=== PATIENT | female | born 2000 | race African-American/Black ===

== ENCOUNTER 2023-02-01 01:32 | Day surgery (SDC) | payer OTHER ==
[2023-02-01] MEDS ORDERED: hydrALAZINE 20 MG/ML VIAL SLOW IVP PRN (01:55)
[2023-02-01 01:59] VITALS: BMI 46.8
== END 2023-02-01 03:20 | disposition home or self-care (01) ==
LOC: CSHLD/OP 01:32
PROVIDERS: ATTEND Family Medicine
DX: O26.852 Spotting complicating pregnancy, second trimester (principal); O99.282 Endocrine, nutritional and metabolic diseases complicating pregnancy, second trimester; E03.9 Hypothyroidism, unspecified; Z3A.20 20 weeks gestation of pregnancy; Z79.890 Hormone replacement therapy
CPT/HCPCS: 76815; 99282

== ENCOUNTER 2023-05-07 20:22 | Day surgery (SDC) | payer OTHER ==
[2023-05-07] MEDS ORDERED: hydrALAZINE 20 MG/ML VIAL SLOW IVP PRN (20:29)
[2023-05-07] MEDS ORDERED: Acetaminophen 500 MG TAB PO SCH (20:45)
[2023-05-07] MEDS ORDERED: Lactated Ringer's 1,000 ML IV SCH (20:45)
[2023-05-07 21:21] LABS: Bilirubin Neg (Negative); Blood, Urine 25 (Negative); Clarity Clear (Clear); Glucose, Urine (Dipstick) Normal (Negative); Ketone, Urine Negative (Negative); Leukocyte Negative (Negative); Nitrite Negative (Negative); Protein, Urine (Dipstick) 30 mg/dl (Neg-Trace); Urobilinogen Normal mg/dL (Less than 2)
[2023-05-07 21:35] LABS: Bacteria/HPF 1+ HPF (None Seen); CAUTI Indications for Culture Pregnancy; Mucous/LPF 2+ LPF (<2+); RBC/HPF 0-3 HPF (0-3); WBC/HPF 0-3 HPF (0-3)
[2023-05-07 21:36] LABS: Urine Culture Reflex Yes Yes
[2023-05-07 21:52] VITALS: BMI 36.2
== END 2023-05-07 22:25 | disposition home or self-care (01) ==
LOC: CSHLD/OP 20:22
PROVIDERS: ATTEND Family Medicine
DX: O99.891 Other specified diseases and conditions complicating pregnancy (principal); R10.9 Unspecified abdominal pain; O99.810 Abnormal glucose complicating pregnancy; O34.211 Maternal care for low transverse scar from previous cesarean delivery; O23.593 Infection of other part of genital tract in pregnancy, third trimester; Z79.899 Other long term (current) drug therapy; Z3A.33 33 weeks gestation of pregnancy
CPT/HCPCS: 51701; 81001; 87086; 87480; 87510; 87660; 96361; 99283

== ENCOUNTER 2023-06-12 05:02 | Inpatient (IN) | payer OTHER ==
[2023-06-11 19:32] LABS: Hemoglobin 11.9 g/dL (12.0-15.5); Platelet Count 221 10x3/uL (150-450)
[2023-06-11 19:59] LABS: Syphilis Antibody Nonreactive (Nonreactive); Syphilis Antibody Index 0.03 S/CO (<1.00 Non-Reactive)
[2023-06-11 20:01] LABS: HBSAg Index 0.16 S/CO (0-0.99); HIV (1/2) Antibody/Antigen Non-Reactive (NonReactive); HIV 1/2 INDEX 0.11 S/CO (<1.00); Hep B Surf Ag Non-Reactive S/CO (NonReactive)
[2023-06-12] MEDS ORDERED: Diphenoxylate HCl/Atropine Tablet PO PRN (05:11)
[2023-06-12] MEDS ORDERED: Tranexamic Acid 1,000 MG/10 ML VIAL IVP PRN (05:11)
[2023-06-12] MEDS ORDERED: Promethazine HCl 25 MG/ML VIAL IM PRN ×3 (05:11→11:49)
[2023-06-12] MEDS ORDERED: CEFAZOLIN 3 GM in Sodium Chloride 0.9% 100 ML IVPB SCH (05:11)
[2023-06-12] MEDS ORDERED: Famotidine/PF 20 mg/2ml Vial SLOW IVP PRN (05:11)
[2023-06-12] MEDS ORDERED: Bicitra 30 ML UDCUP PO PRN (05:11)
[2023-06-12] MEDS ORDERED: Carboprost 250 MCG/ML AMP IM PRN (05:11)
[2023-06-12] MEDS ORDERED: Azithromycin 500 MG in Sodium Chloride 0.9% 250 ML 250 ML IVPB SCH (05:11)
[2023-06-12] MEDS ORDERED: Ondansetron PF 4 MG/2 ML Vial IVP PRN ×4 (05:11→11:49)
[2023-06-12] MEDS ORDERED: hydrALAZINE 20 MG/ML VIAL SLOW IVP PRN ×2 (05:11→11:49)
[2023-06-12] MEDS ORDERED: Methylergonovine 0.2 MG/ML VIAL IM PRN (05:11)
[2023-06-12] MEDS ORDERED: Misoprostol 200 MCG TAB PR PRN (05:11)
[2023-06-12] MEDS ORDERED: Lactated Ringer's 1,000 ML IV SCH (05:15)
[2023-06-12] MEDS ORDERED: Oxytocin 30 units/NS 500 ML 500 ML IV SCH (05:15)
[2023-06-12 05:31] VITALS: BMI 46.3
[2023-06-12] MEDS ORDERED: Ketorolac Tromethamine 30 MG/ML VIAL ONE (07:17)
[2023-06-12] MEDS ORDERED: Dexamethasone 4 mg/ml Vial ONE (07:18)
[2023-06-12] MEDS ORDERED: Ondansetron PF 4 MG/2 ML Vial ONE (07:18)
[2023-06-12] MEDS ORDERED: Phenylephrine 10 MG/ML VIAL ONE (07:18)
[2023-06-12] MEDS ORDERED: Morphine PF 10 MG/10 ML VIAL ONE (07:22)
[2023-06-12] MEDS ORDERED: Oxytocin 10 UNITS/ML VIAL ONE ×2 (07:49→08:19)
[2023-06-12] MEDS ORDERED: ePHEDrine Sulfate 50 MG/10 ML VIAL ONE (07:52)
[2023-06-12] MEDS ORDERED: diphenhydrAMINE 50 MG/ML VIAL ONE (07:58)
[2023-06-12] MEDS ORDERED: Metoclopramide HCl 10 MG/2 ML VIAL ONE (07:58)
[2023-06-12] MEDS ORDERED: Erythromycin Base 0.5% Oint 1 GM TUBE ONE (08:35)
[2023-06-12] MEDS ORDERED: Phytonadione Neonatal 1 MG/0.5 ML AMP ONE (08:35)
[2023-06-12] MEDS ORDERED: Ketorolac Tromethamine 30 MG/ML VIAL IVP PRN (08:41)
[2023-06-12] MEDS ORDERED: Moisturizing Cream (Eucerin) 113 GM JAR TOP PRN (08:41)
[2023-06-12] MEDS ORDERED: Naloxone HCl 0.4 mg/ml Vial IVP PRN ×2 (08:41)
[2023-06-12] MEDS ORDERED: Meperidine HCl/PF 25 MG/ML VIAL SLOW IVP PRN (08:41)
[2023-06-12] MEDS ORDERED: Naloxone HCl 0.4 mg/ml Vial IV PRN (08:41)
[2023-06-12] MEDS ORDERED: fentaNYL 50 mcg/mL 1 mL Vial SLOW IVP PRN (08:41)
[2023-06-12] MEDS ORDERED: diphenhydrAMINE 50 MG/ML VIAL IVP PRN (08:41)
[2023-06-12] MEDS ORDERED: Promethazine HCl 25 MG SUPP PR PRN (08:41)
[2023-06-12] MEDS ORDERED: Ketorolac Tromethamine 30 MG/ML VIAL IVP SCH (08:45)
[2023-06-12] MEDS ORDERED: Communication Order-Pharmacy FS SCH (08:45)
[2023-06-12] MEDS ORDERED: Simethicone Chewable 80 MG TAB PO PRN (11:49)
[2023-06-12] MEDS ORDERED: Lanolin Ointment 7 GM TUBE TOP PRN (11:49)
[2023-06-12] MEDS ORDERED: Bisacodyl 10 MG SUPP PR PRN (11:49)
[2023-06-12] MEDS ORDERED: diphenhydrAMINE 25 MG CAP PO PRN (11:49)
[2023-06-12] MEDS ORDERED: Boostrix 0.5 ML (Tdap) VIAL (>/=7 yrs of age) IM ONE (11:49)
[2023-06-12] MEDS ORDERED: Ferrous Sulfate 325 MG TAB PO SCH (12:00)
[2023-06-12] MEDS ORDERED: Prenatal Vitamin 1 TAB PO SCH (12:00)
[2023-06-12] MEDS ORDERED: Docusate 100 MG CAP PO SCH (12:00)
[2023-06-12] MEDS: Ketorolac Tromethamine 30 MG/ML VIAL IVP SCH (14:25)
[2023-06-12] MEDS: Docusate 100 MG CAP PO SCH (20:09)
[2023-06-12] MEDS: Ferrous Sulfate 325 MG TAB PO SCH (22:55)
[2023-06-12] MEDS: Ibuprofen 800 MG TAB PO SCH (22:55)
[2023-06-13] MEDS: Ketorolac Tromethamine 30 MG/ML VIAL IVP SCH (03:46)
[2023-06-13 05:34] LABS: Hematocrit 32.6 % (34.9-44.5); Hemoglobin 10.2 g/dL (12.0-15.5); Mean Corpuscular HGB CONC 31.3 g/dL (32.0-36.0); Mean Corpuscular Hemoglobin 24.3 pg (27.0-33.0); Mean Corpuscular Volume 77.8 fl (81.6-98.3); Platelet Count 196 10x3/uL (150-450); RBC Distribution Width 13.6 % (11.5-14.5); Red Blood Cell (RBC) Count 4.19 10x6/uL (3.90-5.03); White Blood Cell (WBC) Count 12.9 10x3/uL (3.5-10.5)
[2023-06-13] MEDS: Ibuprofen 800 MG TAB PO SCH ×3 (06:03→21:55)
[2023-06-13] MEDS: Ferrous Sulfate 325 MG TAB PO SCH ×2 (07:24→19:14)
[2023-06-13] MEDS: Prenatal Vitamin 1 TAB PO SCH (09:00)
[2023-06-13] MEDS: Docusate 100 MG CAP PO SCH ×2 (09:01→21:55)
[2023-06-13] MEDS: HYDROcodone/Acetaminophen 5/325 mg Tablet PO PRN ×2 (12:59→17:18)
[2023-06-13] MEDS ORDERED: Ibuprofen 800 MG TAB PO SCH (14:00)
[2023-06-14] MEDS: HYDROcodone/Acetaminophen 5/325 mg Tablet PO PRN ×3 (05:32→21:07)
[2023-06-14] MEDS: Ibuprofen 800 MG TAB PO SCH ×3 (05:32→21:05)
[2023-06-14] MEDS: Ferrous Sulfate 325 MG TAB PO SCH ×2 (08:40→21:01)
[2023-06-14] MEDS: Docusate 100 MG CAP PO SCH ×2 (08:45→21:05)
[2023-06-14] MEDS: Prenatal Vitamin 1 TAB PO SCH (08:45)
[2023-06-14] MEDS ORDERED: Milk Of Magnesia 30 ML UDCUP PO SCH (13:15)
[2023-06-15] MEDS: HYDROcodone/Acetaminophen 5/325 mg Tablet PO PRN (04:40)
[2023-06-15] MEDS: Ibuprofen 800 MG TAB PO SCH (05:34)
[2023-06-15] MEDS: Ferrous Sulfate 325 MG TAB PO SCH (07:12)
[2023-06-15 07:42] VITALS: BP 136/69; TEMP 98.2
[2023-06-15] MEDS ORDERED: Milk Of Magnesia 30 ML UDCUP PO SCH (09:00)
[2023-06-15] MEDS: Docusate 100 MG CAP PO SCH (09:37)
[2023-06-15] MEDS: Prenatal Vitamin 1 TAB PO SCH (09:37)
== END 2023-06-15 13:08 | disposition home or self-care (01) | DRG 788 ==
LOC: CSHLD 05:02 → CSHPP 11:30
PROVIDERS: ADMIT Family Medicine; ATTEND Family Medicine
PROC: 10D00Z1 Extraction of Products of Conception, Low, Open Approach (ICD-10-PCS; principal; 2023-06-12)
PROC: 3E033XZ Introduction of Vasopressor into Peripheral Vein, Percutaneous Approach (ICD-10-PCS; 2023-06-12)
DX: O34.211 Maternal care for low transverse scar from previous cesarean delivery (principal); Z3A.39 39 weeks gestation of pregnancy; Z37.0 Single live birth; O99.214 Obesity complicating childbirth; E66.01 Morbid (severe) obesity due to excess calories; O24.420 Gestational diabetes mellitus in childbirth, diet controlled; O99.284 Endocrine, nutritional and metabolic diseases complicating childbirth
CPT/HCPCS: 36415; 36416; 51702; 85014; 85018; 85027; 85049; 86780; 86850; 86900; 86901; 87340; 87389; J1100; J1200; J1885; J2274; J2370; J2405; J2590; J2765